=== PATIENT | male | born 1975 | race Caucasian/White ===

== ENCOUNTER 2018-01-15 21:50 | Emergency (ER) | payer MEDICAID ==
[~2018-01-15] VITALS: Ht 182.9 cm; Wt 79.5 kg
[2018-01-15 21:53] VITALS: BP 112/68
[2018-01-15] MEDS ORDERED: CEPH500C5 PO (22:35)
[2018-01-15] MEDS ORDERED: ibuprofen tablet 400 MG TABLET PO ONE (22:40)
[2018-01-15] MEDS ORDERED: TETanus/Pertussis (Acell)/Diphther VAC/PF (Tdap-Adult) 0.5ml syringe IM ONE (22:40)
[2018-01-15] MEDS ORDERED: cephalexin 500mg capsule PO ONE (22:40)
== END 2018-01-15 23:30 | disposition home or self-care (01) ==
LOC: ER 21:51
DX: S93.402A Sprain of unspecified ligament of left ankle, initial encounter (principal); L03.116 Cellulitis of left lower limb; Z59.0 Homelessness; X50.1XXA Overexertion from prolonged static or awkward postures, initial encounter; Y93.89 Activity, other specified; Y92.89 Other specified places as the place of occurrence of the external cause; Y99.9 Unspecified external cause status
CPT/HCPCS: 29515; 73610; 90471; 90715; 99284

== ENCOUNTER 2018-01-17 07:29 | Emergency (ER) | payer MEDICAID ==
[~2018-01-17] VITALS: Ht 182.9 cm; Wt 79.0 kg
[~2018-01-17 07:29] MED LIST: CEPH500C5 PO
[2018-01-17 07:59] VITALS: BP 110/59
[2018-01-17] MEDS ORDERED: HYDROcodone/acetaminophen 5mg/325mg tablet PO ONE (08:20)
== END 2018-01-17 09:24 | disposition home or self-care (01) ==
LOC: ER 07:30
DX: S93.402A Sprain of unspecified ligament of left ankle, initial encounter (principal); L03.116 Cellulitis of left lower limb; Z79.899 Other long term (current) drug therapy; Z56.0 Unemployment, unspecified; Z59.0 Homelessness; X50.1XXA Overexertion from prolonged static or awkward postures, initial encounter; Y93.89 Activity, other specified; Y92.89 Other specified places as the place of occurrence of the external cause; Y99.8 Other external cause status
CPT/HCPCS: 99283

== ENCOUNTER 2019-07-28 10:21 | Emergency (ER) | payer MEDICAID ==
[~2019-07-28] VITALS: Ht 182.9 cm; Wt 81.8 kg
[2019-07-28] MEDS ORDERED: normal saline 1000ML IV soln IVB ONE (10:30)
--- NOTE | 2019-07-28 10:33 | NUR ---
PT REFUSING IV. PT REPROTS USING METH 2-3 TIMES PER WEEK. PT SAY "I FEEL FINE"
[2019-07-28] MEDS ORDERED: CEPH500C5 PO (11:27)
--- NOTE | 2019-07-28 11:35 | NUR ---
PT. REFUSING ALL TREATMENT AND BLOOD DRAWS WELL CT. SPOKE TO MD GRACE. PT. REQUESTING TO LEAVE
[2019-07-28 11:36] VITALS: BP 169/122
== END 2019-07-28 11:40 | disposition home or self-care (01) ==
LOC: ER 10:21
DX: L03.114 Cellulitis of left upper limb (principal); R56.9 Unspecified convulsions; Z59.0 Homelessness; Z56.0 Unemployment, unspecified; Z79.899 Other long term (current) drug therapy; W18.39XA Other fall on same level, initial encounter; Y93.89 Activity, other specified; Y92.89 Other specified places as the place of occurrence of the external cause; Y99.8 Other external cause status
CPT/HCPCS: 73110; 73130; 99283

== ENCOUNTER 2022-05-02 19:27 | Emergency (ER) | payer MEDICAID ==
[~2022-05-02] VITALS: Ht 182.9 cm; Wt 79.5 kg
[2022-05-02 19:44] VITALS: BP 126/91
[2022-05-02] MEDS ORDERED: ketorolac trometh inj. 60 MG/2 ML VIAL IM ONE (20:25)
[2022-05-02] MEDS ORDERED: HYDROcodone/acetaminophen 5mg/325mg tablet PO ONE (20:25)
[2022-05-02 20:32] LABS: BASOPHILS % (AUTO) 0.7 % (0-1); EOSINOPHILS # (AUTO) 0.2 X10'3 (0-0.9); EOSINOPHILS % (AUTO) 2.2 % (0-6); HEMATOCRIT 40.5 % (42.0-52.0); HEMOGLOBIN 13.5 g/dl (14.0-17.9); LYMPHOCYTES # (AUTO) 1.5 X10'3 (1.1-4.8); LYMPHOCYTES % (AUTO) 20.6 % (21-51); MEAN CORPUSCULAR HEMOGLOBIN 28.6 PG (27.0-31.0); MEAN CORPUSCULAR HGB CONC 33.3 g/dL (33.0-36.5); MEAN CORPUSCULAR VOLUME 85.8 FL (78-98); MEAN PLATELET VOLUME 8.5 FL (7.4-10.4); MONOCYTES # (AUTO) 0.7 X10'3 (0-0.9); MONOCYTES % (AUTO) 9.4 % (2-12); NEUTROPHILS % (AUTO) 67.1 % (42-75); PLATELET COUNT 154 X10'3 (140-440); RED BLOOD COUNT 4.73 X10'6 (4.70-6.10); RED CELL DISTRIBUTION WIDTH 13.8 % (11.5-14.5); WHITE BLOOD COUNT 7.5 X10'3 (4.5-11.0)
[2022-05-02 20:46] LABS: ALANINE AMINOTRANSFERASE 34 U/L (12-78); ALBUMIN 3.6 G/DL (3.4-5.0); ALKALINE PHOSPHATASE 61 IU/L (46-116); ANION GAP 8 (8-16); ASPARTATE AMINO TRANSFERASE 28 U/L (10-37); BILIRUBIN,TOTAL 0.4 MG/DL (0.1-1.0); BLOOD UREA NITROGEN 19 MG/DL (7-18); BUN/CREATININE RATIO 21.8 (5.4-32.0); CALCIUM 8.8 MG/DL (8.5-10.1); CHLORIDE 106 MMOL/L (99-107); CREATININE 0.87 MG/DL (0.60-1.10); ETHANOL < 0.010 GM/DL (0.0-0.010); GLUCOSE 101 MG/DL (70-104); POTASSIUM 3.9 MMOL/L (3.5-5.1); SODIUM 142 MMOL/L (135-145); TOTAL PROTEIN 7.2 G/DL (6.4-8.2); eGFR > 90 ML/MIN
[2022-05-02] MEDS ORDERED: TETanus/Pertussis (Acell)/Diphther VAC/PF (Tdap-Adult) 0.5ml syringe IMVAC ONE (20:55)
== END 2022-05-02 22:34 | disposition home or self-care (01) ==
LOC: ER 19:28
DX: S00.81XA Abrasion of other part of head, initial encounter (principal); Z59.00 Homelessness unspecified; Z56.0 Unemployment, unspecified; W19.XXXA Unspecified fall, initial encounter; Y93.89 Activity, other specified; Y92.89 Other specified places as the place of occurrence of the external cause; Y99.8 Other external cause status
CPT/HCPCS: 36415; 70450; 70486; 72125; 80053; 80320; 85025; 85610; 90471; 90715; 96372; 99284; J1885

== ENCOUNTER 2022-12-17 16:54 | Emergency (ER) | payer MEDICAID ==
[~2022-12-17] VITALS: Ht 182.9 cm; Wt 90.0 kg
[2022-12-17 17:21] VITALS: BP 127/84
[2022-12-18] MEDS ORDERED: DOXY-411 PO (01:58)
== END 2022-12-17 19:45 | disposition left against medical advice (07) ==
LOC: ER 16:55
DX: M79.601 Pain in right arm (principal); Z53.21 Procedure and treatment not carried out due to patient leaving prior to being seen by health care provider
CPT/HCPCS: 99281

== ENCOUNTER 2022-12-17 23:32 | Emergency (ER) | payer MEDICAID ==
[~2022-12-17] VITALS: Ht 182.9 cm; Wt 86.3 kg
[2022-12-18] MEDS ORDERED: DOXYCYCLINE 100MG CAPSULE PO STA (01:57)
[2022-12-18] MEDS ORDERED: DOXY-411 PO (01:58)
[2022-12-18 02:11] VITALS: BP 107/65
== END 2022-12-18 02:18 | disposition home or self-care (01) ==
LOC: ER 23:33
DX: T22.111D Burn of first degree of right forearm, subsequent encounter (principal); F17.200 Nicotine dependence, unspecified, uncomplicated; Z56.0 Unemployment, unspecified; Z59.00 Homelessness unspecified; X58.XXXD Exposure to other specified factors, subsequent encounter
CPT/HCPCS: 99283